=== PATIENT | male | born 1995 ===

== ENCOUNTER → 2017-04-27 | Outpatient (CLI) | payer SELFPAY ==
[2017-04-27 21:02] LABS: CHLAM PCR NOT DETECTED (NOT DETECT); GON PCR NOT DETECTED (NOT DETECT)
== END ==
LOC: LAB 18:16
PROVIDERS: ATTEND Nurse Practitioner Acute Care
DX: R30.0 Dysuria (principal)
CPT/HCPCS: 87491; 87591

== ENCOUNTER → 2017-04-27 | Outpatient (CLI) | payer SELFPAY | LOC: LAB 11:16 | PROVIDERS: ATTEND Nurse Practitioner Acute Care | DX: R30.0 Dysuria (principal) | CPT/HCPCS: 87086 ==